=== PATIENT | male | born 1950 | race Caucasian/White ===

== ENCOUNTER 2018-02-27 14:27 | Emergency (ER) | payer MEDICARE ==
[2018-02-27] MEDS ORDERED: OXYCODONE-ACETAMINOPHEN 5-325 MG TABLET PO ONE (14:55)
[2018-02-27] MEDS ORDERED: ONDANSETRON 4 MG TAB.RAPDIS PO ONE (14:55)
--- NOTE | 2018-02-27 14:57 | ER Document Report ---
ED Medical Screen (RME) - General Chief Complaint: Flank Pain Stated Complaint: BACK PAIN Time Seen by Provider: 02/27/18 14:40 Notes: 68-year-old male patient with a past medical history of kidney stones had onset at 10:00 this morning of right flank pain radiating around to the right lower quadrant and now causing the right testicle hurt. His last stone was about 8 years ago. He had a melanoma removed from his left neck done at [facility] yesterday. He has recently moved to this area. He does continue to have a fair amount of nausea with his discomfort. I have greeted and performed a rapid initial assessment of this patient. A comprehensive ED assessment and evaluation of the patient, analysis of test results and completion of the medical decision making process will be conducted by additional ED providers. TRAVEL OUTSIDE OF THE [place] IN LAST 30 DAYS: No - Related Data Allergies/Adverse Reactions: No Known Allergies Allergy (Unverified 02/27/18 14:38) Past Medical History - Social History Chew tobacco use (# tins/day): No Frequency of alcohol use: None Drug Abuse: None Renal/ Medical History: Denies: Hx Peritoneal Dialysis Physical Exam - Vital signs Vitals: Temp Pulse Resp BP Pulse Ox 98.1 F 65 18 154/75 H 96 02/27/18 14:32 02/27/18 14:32 02/27/18 14:32 02/27/18 14:32 02/27/18 14:32 Course - Vital Signs Vital signs: Temp Pulse Resp BP Pulse Ox 98.1 F 65 18 154/75 H 96 02/27/18 14:32 02/27/18 14:32 02/27/18 14:32 02/27/18 14:32 02/27/18 14:32
[2018-02-27 15:49] LABS: APPEARANCE,URINE CLOUDY; BILIRUBIN,URINE NEGATIVE (NEGATIVE); CALCIUM OXALATE CRYSTALS,URINE FEW /HPF; COLOR,URINE AMBER; GLUCOSE, URINE NEGATIVE (NEGATIVE); KETONES,URINE 20 mg/dL (NEGATIVE); LEUKOCYTE ESTERASE,URINE NEGATIVE (NEGATIVE); NITRITE,URINE NEGATIVE (NEGATIVE); PROTEIN,URINE 100 mg/dL (NEGATIVE); URINE SPECIFIC GRAVITY 1.023; UROBILINOGEN,URINE NEGATIVE mg/dL (<2.0)
[2018-02-27] MEDS ORDERED: TAMSULOSIN HCL 0.4 MG CAP.SR.24H PO ONE (16:15)
--- NOTE | 2018-02-27 16:16 | ER Document Report ---
ED General - General Chief Complaint: Flank Pain Stated Complaint: BACK PAIN Time Seen by Provider: 02/27/18 14:40 Mode of Arrival: Ambulatory Information source: Patient Notes: 68-year-old male with a history of melanoma presents with complaint of abdominal pain and back pain. Patient states that abdominal pain started 1 day prior to arrival. He describes the pain as located in the right lower quadrant , intermittent sharp pain. He states that his right low back began hurting this morning. He states the symptoms feel similar to his previous kidney stones. His last episode of stones was approximately 1 year ago. This did require lithotripsy. Patient had associated nausea without vomiting. He denies any fever, chills. She was placed on doxycycline and started yesterday after the melanoma was removed from the left side of his neck. His last bowel movement was this morning. He denies any black or bloody stools. TRAVEL OUTSIDE OF THE [place] IN LAST 30 DAYS: No - HPI Onset: Yesterday Severity: Mild Associated symptoms: Nausea. denies: Fever, Vomiting Exacerbated by: Movement Relieved by: Other - Pain relieved with Percocet. Similar symptoms previously: Yes Recently seen / treated by doctor: Yes - Related Data Allergies/Adverse Reactions: No Known Allergies Allergy (Unverified 02/27/18 14:38) Past Medical History - General Information source: Patient - Social History Smoking Status: Never Smoker Chew tobacco use (# tins/day): No Frequency of alcohol use: None Drug Abuse: None Lives with: Family Family History: Reviewed & Not Pertinent Patient has suicidal ideation: No Patient has homicidal ideation: No - Medical History Medical History: Other - Melanoma Renal/ Medical History: Reports: Hx Kidney Stones. Denies: Hx Peritoneal Dialysis Past Surgical History: Reports: Hx Cholecystectomy Review of Systems - Review of Systems Notes: Patient denies fever, chills, nausea, vomiting, headache, ear pain, sore throat , cough, chest pain, shortness of breath, dysuria, hematuria, rash, SI/HI. Physical Exam - Vital signs Vitals: Temp Pulse Resp BP Pulse Ox 98.1 F 65 18 154/75 H 96 02/27/18 14:32 02/27/18 14:32 02/27/18 14:32 02/27/18 14:32 02/27/18 14:32 Interpretation: Normal, Hypertensive - Notes Notes: PHYSICAL EXAMINATION: GENERAL: Well-appearing, well-nourished and in no acute distress. HEAD: Atraumatic, normocephalic. EYES: Pupils equal round and reactive to light, extraocular movements intact, sclera anicteric, conjunctiva are normal. ENT: Nares patent, oropharynx clear without exudates. Moist mucous membranes. NECK: Normal range of motion, supple without lymphadenopathy LUNGS: Breath sounds clear to auscultation bilaterally and equal. No wheezes rales or rhonchi. HEART: Regular rate and rhythm without murmurs ABDOMEN: Soft, nontender, nondistended abdomen. No guarding, no rebound. No masses appreciated. Right CVA tenderness Musculoskeletal: Normal range of motion, no pitting or edema. No cyanosis. NEUROLOGICAL: Cranial nerves grossly intact. Normal speech, normal gait. Normal sensory, motor exams PSYCH: Normal mood, normal affect. SKIN: Warm, Dry, normal turgor, no rashes or lesions noted. Course - Re-evaluation Re-evalutation: Laboratory 02/27/18 15:00 Urine Color DEEPAK Urine Appearance CLOUDY Urine pH 5.0 Ur Specific [place] 1.023 Urine Protein 100 H Urine Glucose (UA) NEGATIVE Urine Ketones 20 H Urine Blood LARGE H Urine Nitrite NEGATIVE Urine Bilirubin NEGATIVE Urine Urobilinogen NEGATIVE Ur Leukocyte Esterase NEGATIVE Urine WBC (Auto) 16 Urine RBC (Auto) >182 Urine Bacteria (Auto) 1+ Calcium Oxalate Cr Auto FEW Urine Mucus (Auto) FEW Urine Yeast (Budding) PRESENT Urine Ascorbic Acid 40 H 02/27/18 21:54 68-year-old male with a history of urolithiasis presents with complaint of right flank and right lower quadrant pain that started 1 day prior to arrival. Patient was seen by myself upon arrival. Vital signs were reviewed. Patient is afebrile, and not hypoxic. Patient does not appear toxic or dehydrated. They are in no acute distress. Previous medical records and nursing notes reviewed. Significant findings include hematuria and mild right-sided hydro-on bedside ultrasound. Patient received Percocet prior to my exam and states this has helped greatly. Urinalysis is without infection. I did discuss CAT scan with the patient who is agreeable with trial at home to see if he can pass the stone on his own. Patient was provided a urine strainer, Motrin, Zofran and Flomax upon discharge. He has Percocet at home from his recent melanoma removal. patient was encouraged to return to the emergency department if he is unable to tolerate fluids, pain persists or worsens. Patient tolerated fluids prior to discharge home. 02/27/18 21:54 02/27/18 21:58 - Vital Signs Vital signs: Temp Pulse Resp BP Pulse Ox 98.0 F 67 21 H 149/74 H 95 02/27/18 16:44 02/27/18 16:44 02/27/18 16:44 02/27/18 16:44 02/27/18 16:44 - Laboratory Laboratory results interpreted by me: 02/27/18 15:00 Urine Protein 100 H Urine Ketones 20 H Urine Blood LARGE H Urine Ascorbic Acid 40 H Procedures - Ultrasound/Bedside Ultrasound/Bedside Time completed: 16:00 - Renal ultrasound was performed. There is mild right- sided hydronephrosis. Discharge - Discharge Clinical Impression: Urolithiasis Qualifiers: Urinary calculus location: other lower urinary tract location Qualified Code(s) : N21.8 - Other lower urinary tract calculus Hematuria Qualifiers: Hematuria type: unspecified type Qualified Code(s): R31.9 - Hematuria, unspecified Disposition: HOME, SELF-CARE Instructions: Kidney Stone ([facility]) Additional Instructions: Follow up with your physician tomorrow for further care or return to the ED IMMEDIATELY if symptoms worsen or new concerns occur. If you cannot afford to follow up with your primary care physician a list of low cost clinics have been provided at the end of your discharge papers as well. Prescriptions: Ibuprofen [Motrin 600 mg Tablet] 600 mg PO Q6H #15 tablet Ondansetron [Zofran Odt 4 mg Tablet] 1 - 2 tab PO Q4H PRN #15 tab.rapdis PRN Reason: For Nausea/Vomiting Tamsulosin HCl [Flomax 0.4 mg Cap.sr] 0.4 mg PO DAILY #7 cap.sr.24h Forms: Elevated Blood Pressure Referrals: AGAPITO EDOUARD MD [BREEZY NICHOLE] - Follow up as needed
[2018-02-27] MEDS ORDERED: KETOROLAC TROMETHAMINE 60 MG/2 ML SDV IM ONE (16:27)
[2018-02-27 16:47] VITALS: BP 149/74
== END 2018-02-27 16:48 | disposition home or self-care (01) ==
LOC: ER 14:27
DX: N20.9 Urinary calculus, unspecified (principal); N13.30 Unspecified hydronephrosis; R31.9 Hematuria, unspecified; R10.31 Right lower quadrant pain; M54.5 Low back pain; R11.0 Nausea; Z85.820 Personal history of malignant melanoma of skin; Z98.890 Other specified postprocedural states; Z90.49 Acquired absence of other specified parts of digestive tract
CPT/HCPCS: 99284; 81001; A9270 ×3; S0119